=== PATIENT | female | born 1985 | race African-American/Black ===

== ENCOUNTER 2020-05-17 08:00 | Inpatient (IN) | payer MEDICAID ==
[~2020-05-17] VITALS: Ht 157.5 cm; Wt 89.8 kg
[2020-05-17] MEDS ORDERED: DEXT 5%/LR + PITOCIN 20UNITS/L 1,000 ML IV SCH ×2 (08:20→15:13)
[2020-05-17] MEDS ORDERED: LACTATED RINGERS 1,000 ML IV SCH (08:20)
[2020-05-17] MEDS ORDERED: CARBOPROST TROMETHAMINE 250 MCG/ML AMPUL IM PRN (08:30)
[2020-05-17] MEDS ORDERED: METHYLERGONOVINE MALEATE 0.2 MG/ML IM PRN (08:30)
[2020-05-17] MEDS ORDERED: MISOPROSTOL 100MCG TABLET VG SCH (08:30)
[2020-05-17 09:13] LABS: CLARITY URINE CLEAR (CLEAR); COLOR URINE YELLOW (YELLOW); KETONES URINE TRACE (NEGATIVE); LEUKOCYTE ESTERASE URINE NEGATIVE (NEGATIVE); NITRITE URINE NEGATIVE (NEGATIVE); OCCULT BLOOD URINE NEGATIVE (NEGATIVE); PH URINE 7.5 (4.5-8.0); PROTEIN URINE NEGATIVE (NEGATIVE); SPECIFIC GRAVITY URINE 1.023 (1.005-1.030)
[2020-05-17 09:17] LABS: INR 0.9; PARTIAL THROMBOPLASTIN TIME 24.6 sec (23.4-31.0)
[2020-05-17 09:19] LABS: BASOPHILS % 0.3 % (0.0-2.0); EOSINOPHILS % 1.8 % (0.0-5.0); HEMATOCRIT. 31.3 % (36.0-48.0); LYMPHOCYTES % 26.6 % (20.0-50.0); MEAN CORPUSCULAR HEMOGLOBIN 22.6 pg (28.0-32.0); MEAN CORPUSCULAR VOLUME 70.7 fL (81.0-99.0); MEAN PLATELET VOLUME 9.9 fl (7.4-10.4); MONOCYTES % 10.3 % (2.0-8.0); PLATELET 209 x1000/uL (130-400); RED BLOOD CELL COUNT 4.42 mill/uL (4.2-5.4); RED CELL DISTRIBUTION WIDTH 14.9 % (11.6-14.6)
[2020-05-17 09:32] LABS: *AMPHETAMINES SCREEN URINE NEGATIVE (NEGATIVE); *BARBITURATES SCREEN URINE NEGATIVE (NEGATIVE); *COCAINE SCREEN URINE NEGATIVE (NEGATIVE)
[2020-05-17 09:33] LABS: *BENZODIAZEPINES SCREEN URINE NEGATIVE (NEGATIVE); CANNABINOID URINE SCREEN NEGATIVE (NEGATIVE); METHADONE URINE SCREEN NEGATIVE (NEGATIVE); OPIATES URINE SCREEN NEGATIVE (NEGATIVE)
[2020-05-17 09:34] LABS: PHENCYCLIDINE URINE SCREEN NEGATIVE (NEGATIVE)
[2020-05-17] MEDS ORDERED: ONDANSETRON HCL 4MG/2ML INJ ONE (10:14)
[2020-05-17] MEDS ORDERED: OXYTOCIN 10 UNITS/ML 1ML ONE ×2 (10:14→14:54)
[2020-05-17] MEDS ORDERED: KETOROLAC 60MG/2ML VIAL IM ONE (10:14)
[2020-05-17] MEDS ORDERED: CEFAZOLIN SODIUM 1000MG/VIAL ONE (10:14)
[2020-05-17] MEDS ORDERED: CITRIC ACID/SODIUM CITRATE SOLN 30ML UDC PO NR (10:15)
[2020-05-17 12:01] LABS: HEPATITIS B SURFACE ANTIGEN NEGATIVE
[2020-05-17] MEDS ORDERED: FENTANYL CITRATE/PF 50MCG/ML 2ML VIAL ONE (13:45)
[2020-05-17] MEDS ORDERED: MORPHINE SULFATE/PF 1MG/ML 10ML AMP ONE (13:45)
[2020-05-17] MEDS ORDERED: EPHEDRINE SULFATE 50MG/ML VIAL ONE (14:21)
[2020-05-17] MEDS ORDERED: IBUPROFEN 400MG TABLET PO PRN (15:15)
[2020-05-17] MEDS ORDERED: HEMORRHOIDAL SUPP PR PRN (15:15)
[2020-05-17] MEDS ORDERED: DIPHENHYDRAMINE 25MG CAPSULE PO PRN (15:15)
[2020-05-17] MEDS ORDERED: LANOLIN OINT 7GM TUBE TOP PRN (15:15)
[2020-05-17] MEDS ORDERED: BISACODYL 10MG SUPP PR PRN (15:15)
[2020-05-17] MEDS ORDERED: ONDANSETRON HCL 4MG/2ML INJ IV PRN (15:15)
[2020-05-17] MEDS ORDERED: MORPHINE SULFATE 2 MG/ML CPJ (NOT FOR IM USE) IV PRN ×3 (15:30)
[2020-05-17] MEDS ORDERED: DEXAMETHASONE 10 MG/ML VIAL IV PRN (15:30)
[2020-05-17] MEDS ORDERED: FENTANYL CITRATE/PF 50MCG/ML 2ML VIAL IV PRN ×3 (15:30)
[2020-05-17] MEDS ORDERED: DIPHENHYDRAMINE 50MG/ML VIAL IV PRN (15:30)
[2020-05-17] MEDS ORDERED: MEPERIDINE HCL/PF 25MG/ML CPJ IV PRN (15:30)
[2020-05-17 17:20] VITALS: BP 121/78
[2020-05-17 17:50] VITALS: BP 123/78
[2020-05-17 19:20] VITALS: BP 116/80
[2020-05-17] MEDS ORDERED: KETOROLAC 30MG/ML VIAL IV PRN (21:00)
[2020-05-17] MEDS ORDERED: DOCUSATE SODIUM 100MG CAPSULE PO SCH (21:00)
[2020-05-17 23:45] VITALS: BP 115/80
[2020-05-18 04:00] VITALS: BP 114/80
[2020-05-18 05:52] LABS: BASOPHILS % 0.1 % (0.0-2.0); HEMATOCRIT. 27.7 % (36.0-48.0); HEMOGLOBIN. 8.9 g/dL (12.0-16.0); LYMPHOCYTES % 15.1 % (20.0-50.0); MEAN CORPUSCULAR HEMOGLOBIN 22.6 pg (28.0-32.0); MEAN PLATELET VOLUME 9.8 fl (7.4-10.4); MONOCYTES % 9.6 % (2.0-8.0); NEUTROPHILS % 74.2 % (40.0-76.0); PLATELET 184 x1000/uL (130-400); RED BLOOD CELL COUNT 3.96 mill/uL (4.2-5.4); RED CELL DISTRIBUTION WIDTH 14.7 % (11.6-14.6)
[2020-05-18 08:00] VITALS: BP 111/73
[2020-05-18] MEDS: SIMETHICONE 80MG TABLET CHEW PO SCH ×4 (08:39→21:31)
[2020-05-18] MEDS: MAGNESIUM/ALUMINUM HYDROXIDE/SIMETHICONE 30ML UDC PO SCH ×3 (08:39→17:29)
[2020-05-18] MEDS: PRENATAL VIT/FE FUMARATE/FA TABLET PO SCH (08:40)
[2020-05-18] MEDS: FERROUS SULFATE 325MG TABLET PO SCH ×3 (08:40→17:30)
[2020-05-18] MEDS ORDERED: HYDROCODONE/ACETAMINOPHEN 5/325MG TABLET PO PRN (11:52)
[2020-05-18] MEDS: ACETAMINOPHEN WITH CODEINE 300/30MG TABLET PO PRN ×2 (12:18→18:27)
[2020-05-18 16:00] VITALS: BP 125/79
[2020-05-18 19:30] VITALS: BP 123/80
[2020-05-18 21:18] LABS: PLATELET ESTIMATE NORMAL
[2020-05-19] MEDS: ACETAMINOPHEN WITH CODEINE 300/30MG TABLET PO PRN ×2 (00:35→07:18)
[2020-05-19 04:00] VITALS: BP 130/85
[2020-05-19 07:30] VITALS: BP 134/87
[2020-05-19] MEDS: MAGNESIUM/ALUMINUM HYDROXIDE/SIMETHICONE 30ML UDC PO SCH (07:30)
[2020-05-19] MEDS: PRENATAL VIT/FE FUMARATE/FA TABLET PO SCH (08:45)
[2020-05-19] MEDS: FERROUS SULFATE 325MG TABLET PO SCH ×2 (08:45→12:29)
[2020-05-19] MEDS ORDERED: IBUP-2030 MT (09:59)
[2020-05-19] MEDS: SIMETHICONE 80MG TABLET CHEW PO SCH (12:29)
== END 2020-05-19 14:53 | disposition home or self-care (01) | DRG 540 ==
LOC: 8 EST LDRP 08:00 → OBSVTOIN 08:00 → 8 EST A/PP 14:28 → 8EST 17:18
PROVIDERS: ADMIT Obstetrics & Gynecology; ATTEND Obstetrics & Gynecology
PROC: 10D00Z1 Extraction of Products of Conception, Low, Open Approach (ICD-10-PCS; principal; 2020-05-17)
DX: O42.913 Preterm premature rupture of membranes, unspecified as to length of time between rupture and onset of labor, third trimester (principal); O34.211 Maternal care for low transverse scar from previous cesarean delivery; O60.14X0 Preterm labor third trimester with preterm delivery third trimester, not applicable or unspecified; O99.214 Obesity complicating childbirth; E66.9 Obesity, unspecified; D62 Acute posthemorrhagic anemia; Z3A.36 36 weeks gestation of pregnancy; O99.02 Anemia complicating childbirth; Z37.0 Single live birth
CPT/HCPCS: 36415; 80305; 81003; 85025; 86592; 86703; 86762; 86850; 86900; 86920; 87340; 88307; 99281; J0690; J1885; J2274; J2405; J3010; J3490